=== PATIENT | female | born 1990 | race African-American/Black ===

== ENCOUNTER 2023-06-12 00:43 | Emergency (ER) | payer MEDICAID, OTHER ==
[~2023-06-12] VITALS: Ht 167.6 cm; Wt 90.5 kg
[2023-06-12 00:52] VITALS: BP 121/85; O2SAT 100
[2023-06-12 01:15] LABS: CLARITY URINE CLEAR (CLEAR); COLOR URINE YELLOW (YELLOW); GLUCOSE URINE NEGATIVE (NEGATIVE); KETONES URINE NEGATIVE (NEGATIVE); LEUKOCYTE ESTERASE URINE NEGATIVE (NEGATIVE); NITRITE URINE NEGATIVE (NEGATIVE); OCCULT BLOOD URINE NEGATIVE (NEGATIVE); PH URINE 6.5 (4.5-8.0); PROTEIN URINE NEGATIVE (NEGATIVE); UROBILINOGEN URINE 0.2 E.U./dL (0.2-1.0)
[2023-06-12 01:36] LABS: BASOPHILS % 0.9 % (0.0-2.0); EOSINOPHILS % 4.3 % (0.0-5.0); HEMATOCRIT. 33.7 % (36.0-48.0); LYMPHOCYTES % 36.9 % (20.0-50.0); MEAN CORPUSCULAR HEMOGLOBIN 27.2 pg (28.0-32.0); MEAN CORPUSCULAR HGB CONC 32.6 g/dL (31.0-37.0); MEAN CORPUSCULAR VOLUME 83.4 fL (81.0-99.0); MEAN PLATELET VOLUME 7.4 fl (7.4-10.4); NEUTROPHILS % 47.9 % (40.0-76.0); PLATELET 305 x1000/uL (130-400); RED BLOOD CELL COUNT 4.04 mill/uL (4.2-5.4); RED CELL DISTRIBUTION WIDTH 16.4 % (11.6-14.6); WHITE BLOOD COUNT 6.2 x1000/uL (4.5-11.0)
[2023-06-12 01:46] LABS: CHLORIDE 105 mEq/L (98-107); INDEX HEMOLYSI 1 (1-3); INDEX ICTERIC 1 (1-4); INDEX LIPEMIC 1 (1-3); POTASSIUM 4.1 mEq/L (3.5-5.1); SODIUM 134 mEq/L (136-145)
[2023-06-12 01:56] LABS: ALANINE AMINOTRANSFERASE 23 IU/L (13-61); ALBUMIN 3.5 g/dL (3.4-5.0); ASPARTATE AMINOTRANSFERASE 14 IU/L (15-37); BILIRUBIN TOTAL 0.3 mg/dL (0.1-1.0); CALCIUM 9.1 mg/dL (8.5-10.1); CARBON DIOXIDE 30 mEq/L (21-32); CREATININE 0.8 mg/dL (0.6-1.3); GLUCOSE 104 mg/dL (70-105); NT PRO B-TYPE NATRIURETIC PEP 49 pg/mL (5-125); PROTEIN TOTAL 7.9 g/dL (6.0-8.3); TROPONIN I HIGH SENSITIVITY 4 ng/L (<54); UREA NITROGEN BLOOD 16 mg/dL (7-21)
[2023-06-12 02:04] LABS: PROTHROMBIN TIME 10.3 sec (9.6-11.0)
[2023-06-12] MEDS ORDERED: LORAZEPAM 0.5MG TABLET PO ONE (02:30)
[2023-06-12] MEDS ORDERED: IBUP-2028 MT (02:36)
[2023-06-12 02:48] LABS: HCG SCREEN NEGATIVE
[2023-06-12 03:13] VITALS: PULSE 89; RESP 17; TEMP 98.4
== END 2023-06-12 03:15 | disposition home or self-care (01) ==
LOC: ER 00:43
DX: R07.89 Other chest pain (principal)
CPT/HCPCS: 36415; 71045; 80053; 81003; 81025; 83880; 84484; 84703; 85025; 85379; 93005; 99285